=== PATIENT | female | born 1960 | race Two or more races ===

== ENCOUNTER 2019-04-06 12:02 | Outpatient (CLI) | payer OTHER ==
[~2019-04-06 12:02] MED LIST: LEVAQUIN500 MG PO; ULTRACET PO
== END 2019-04-06 13:06 | disposition home or self-care (01) ==
LOC: RAD 501 12:02
DX: S20.219A Contusion of unspecified front wall of thorax, initial encounter (principal)

== ENCOUNTER → 2019-05-20 14:13 | Outpatient (CLI) | payer OTHER | END | disposition home or self-care (01) | LOC: LAB 14:13 | DX: E21.2 Other hyperparathyroidism (principal); E88.89 Other specified metabolic disorders; E55.9 Vitamin D deficiency, unspecified; M85.89 Other specified disorders of bone density and structure, multiple sites; E56.1 Deficiency of vitamin K; M81.8 Other osteoporosis without current pathological fracture ==

== ENCOUNTER 2019-06-01 14:38 | Outpatient (CLI) | payer OTHER | END 2019-06-01 14:40 | disposition home or self-care (01) | LOC: NUCLEAR 14:38 | DX: M81.0 Age-related osteoporosis without current pathological fracture (principal) ==

== ENCOUNTER 2019-08-24 14:01 | Outpatient (CLI) | payer OTHER | END 2019-08-24 15:20 | disposition home or self-care (01) | LOC: RAD 14:01 | DX: M54.5 Low back pain (principal); M54.16 Radiculopathy, lumbar region ==

== ENCOUNTER 2020-08-23 15:27 | Outpatient (CLI) | payer OTHER | END 2020-08-23 15:37 | disposition home or self-care (01) | LOC: TOM 15:27 | PROVIDERS: ATTEND Orthopaedic Surgery | DX: M54.5 Low back pain (principal) ==

== ENCOUNTER 2021-01-02 14:00 | Outpatient (CLI) | payer OTHER | END 2021-01-02 14:03 | disposition home or self-care (01) | LOC: MAMO-SONO 14:00 | PROVIDERS: ATTEND Specialist | DX: Z12.31 Encounter for screening mammogram for malignant neoplasm of breast (principal); N64.59 Other signs and symptoms in breast ==

== ENCOUNTER 2021-01-24 15:17 | Outpatient (CLI) | payer OTHER | END 2021-01-24 15:47 | disposition home or self-care (01) | LOC: RAD 15:17 | PROVIDERS: ATTEND Orthopaedic Surgery | DX: M25.562 Pain in left knee (principal) ==

== ENCOUNTER → 2021-05-08 | Outpatient (CLI) | payer OTHER | END | disposition home or self-care (01) | LOC: RAD 15:56 | PROVIDERS: ATTEND Physical Medicine & Rehabilitation | DX: M79.641 Pain in right hand (principal) ==

== ENCOUNTER 2021-05-30 14:09 | Outpatient (CLI) | payer OTHER | END 2021-05-30 14:16 | disposition home or self-care (01) | LOC: NUCLEAR 14:09 | PROVIDERS: ATTEND Orthopaedic Surgery | DX: M81.0 Age-related osteoporosis without current pathological fracture (principal) ==

== ENCOUNTER 2021-07-17 10:58 | Outpatient (CLI) | payer OTHER | END 2021-07-17 11:05 | disposition home or self-care (01) | LOC: LAB 10:58 | PROVIDERS: ATTEND Physical Medicine & Rehabilitation | DX: D64.89 Other specified anemias (principal); M13.0 Polyarthritis, unspecified; E55.9 Vitamin D deficiency, unspecified; E03.8 Other specified hypothyroidism ==

== ENCOUNTER → 2021-08-07 | Outpatient (CLI) | payer OTHER | END | disposition home or self-care (01) | LOC: NUCLEAR 07-25 10:15 | PROVIDERS: ATTEND Physical Medicine & Rehabilitation | DX: M13.0 Polyarthritis, unspecified (principal); M12.0 Chronic postrheumatic arthropathy [Jaccoud] | CPT/HCPCS: 78315; A9503 ==

== ENCOUNTER → 2021-10-14 11:00 | Outpatient (CLI) | payer OTHER | END | disposition home or self-care (01) | LOC: LAB 11:00 | PROVIDERS: ATTEND Orthopaedic Surgery | DX: G72.49 Other inflammatory and immune myopathies, not elsewhere classified (principal); E56.1 Deficiency of vitamin K; M79.642 Pain in left hand; M20.022 Boutonniere deformity of left finger(s) ==

== ENCOUNTER 2022-07-05 10:28 | Outpatient (CLI) | payer OTHER | END 2022-07-05 11:38 | disposition home or self-care (01) | LOC: LAB 10:28 | PROVIDERS: ATTEND Orthopaedic Surgery | DX: M06.09 Rheumatoid arthritis without rheumatoid factor, multiple sites (principal); R74.8 Abnormal levels of other serum enzymes; E03.8 Other specified hypothyroidism; E11.9 Type 2 diabetes mellitus without complications; M05.79 Rheumatoid arthritis with rheumatoid factor of multiple sites without organ or systems involvement; R76.0 Raised antibody titer ==

== ENCOUNTER 2022-09-24 10:51 | Outpatient (CLI) | payer OTHER | END 2022-09-24 11:16 | disposition home or self-care (01) | LOC: MAMO-SONO 10:51 | PROVIDERS: ATTEND Specialist | DX: N60.11 Diffuse cystic mastopathy of right breast (principal); N60.12 Diffuse cystic mastopathy of left breast ==

== ENCOUNTER 2023-07-30 13:36 | Outpatient (CLI) | payer OTHER | END 2023-07-30 13:42 | disposition home or self-care (01) | LOC: NUCLEAR 13:36 | PROVIDERS: ATTEND Internal Medicine Rheumatology | DX: M81.0 Age-related osteoporosis without current pathological fracture (principal) ==